=== PATIENT | female | born 1960 | race Caucasian/White ===

== ENCOUNTER → 2016-06-18 | Outpatient (CLI) | payer BC ==
[~2016-06-18] MED LIST: ACETAMINOPHEN PO; ASPIRIN ENTERI325 M1 PO; AUGMENTIN PO; CALCIUM 500 + D1 TAB; CELEBREX PO; CELECOXIB200 MG PO; COREG PO; COREG3.125 MG PO; COUMADIN; COUMADIN PO; COUMADIN10 MG PO; COUMADIN5 MG PO; COUMADIN7.5 MG; CRESTOR40 MG PO; FIORICET 50-321 EACH PO; FLEXERIL; HYDROCODON-ACE1 EAC5 PO; HYDROCODON-ACE1 EAC7 PO; HYDROCODON-ACET15 M1 PO; HYDROCODONE-APA1 T55 PO; HYDROCODONE/APA1 T16 PO; LIPITOR20 MG PO; LORTAB 10-5001 EACH PO; LOVENOX100 MG/ML INJ; LOVENOX40 MG/0.4 SUBQ; MACROBID100 M1 PO; MOBIC15 MG PO; MOBIC7.5 MG/5 M PO; NAPROXEN; NAPROXEN PO; NEURONTIN300 MG PO; OS-CAL 500+D CA1 TA1 PO; PANTOPRAZOLE SO40 MG PO; PEN-VEE K PO; PERCOCET 10/31 UDTA1 PO; PERCOCET5/325 PO; PREDNISONE PO; PROZAC; PROZAC PO; PROZAC40 MG PO; SIMVASTATIN40 MG PO; TOPAMAX PO; TOPAMAX200 MG PO; TRAMADOL HCL50 M1 PO; TRAMADOL HCL50 M2 PO; ULTRAM; ULTRAM PO; VICODIN 5/500 T1 TAB PO; VITAL-D RX TABL1 TAB PO; VITAMIN D PO; VITAMIN D1000 UNI1 PO
[2016-06-18 11:27] LABS: URINE APPEARANCE CLEAR; URINE BILIRUBIN NEG (NEG); URINE BLOOD NEG (NEG); URINE COLOR YELLOW; URINE GLUCOSE NEG (NEG); URINE KETONE NEG (NEG); URINE LEUKOCYTE ESTERASE 2+ (NEG); URINE NITRATE NEG (NEG); URINE PH 7.5 (5-8); URINE PROTEIN NEG (NEG); URINE SPECIFIC GRAVITY 1.021 (1.003-1.035)
[2016-06-18 11:29] LABS: URINE BACTERIA AUWI 1+ (NEGATIVE); URINE SQUAMOUS EPITHELIAL CELL OCC /[HPF]
[2016-06-18 11:42] LABS: URBCS1 AUWI 0-2 /[HPF] (0-2); URINE MUCUS PRESENT
== END | disposition home or self-care (01) ==
LOC: CLAB 10:24
PROVIDERS: Family Medicine
DX: N39.0 Urinary tract infection, site not specified (principal)
CPT/HCPCS: 81003

== ENCOUNTER → 2016-06-23 | Outpatient (CLI) | payer BC ==
--- NOTE | ~2016-06-23 | BD1 ---
[facility] A Service of [facility] RADIOLOGY TEXT RESULTS PATIENT: FATMATA JIMENEZ LOCATION: [facility] : 56 UNIT #: [id number] AGE: [address]: GUILLE ESCAMILLA APRN SEX: F ORDER DR: [id number] [facility] [address]. [place], [place] [address] [id number] O MR#: [id number] Acc #: [id number] NAME: FATMATA JIMENEZ. : 1960 SEX: F STUDY DATE/TIME: 06/23/2016 9:13 UNIT: [facility] ROOM: STUDY DESCRIPTION: BD Dexa Bone Dens 1+ Site Attending Physician: Guille Escamilla Aprn Ordering Physician: Guille Escamilla Aprn Primary Care Physician: Nitin Wilson M.D. MEDICAL IMAGING REPORT This report is preliminary unless electronic signature is present EXAM DEXA scan DATE: 06/23/2016 HISTORY 55-year-old postmenopausal female for osteoporosis screening. Greater than 30-year smoking history. Family history of osteoporosis in her mother. COMPARISON None FINDINGS L1 through L4 total bone mineral density is 0.76 g/cm2 with T-score -2.6 and Z-score -1.3, corresponding to the range of osteoporosis. The left femoral neck bone mineral density is 0.758 g/cm2 with T-score -0.8 and Z-score 0.4, corresponding to the range of normal. IMPRESSION 1. Bone mineral density within the lumbar spine corresponds to the range of osteoporosis. This stratifies the patient at increased risk for fracture. Appropriate medical therapy is advised. 2. Normal bone mineral density within the left femoral neck. Dictated by... Racquel Abdi M.D. THIS IS AN ELECTRONICALLY VERIFIED REPORT Racquel Abdi M.D. at 06/24/2016 7:[address] [facility]/leanna [facility] A Service of [facility] RADIOLOGY TEXT RESULTS PATIENT: FATMATA JIMENEZ LOCATION: [facility] : 56 UNIT #: [id number] AGE: [address]: GUILLE ESCAMILLA APRN SEX: F ORDER DR: TD: 06/23/2016 13:06 JOB #: [id number] MEDICAL IMAGING REPORT Page 1 of 1 COPY
== END | disposition home or self-care (01) ==
LOC: CWCC 06-16 11:30
DX: Z13.820 Encounter for screening for osteoporosis (principal); Z86.010 Personal history of colon polyps; Z51.81 Encounter for therapeutic drug level monitoring; Z79.899 Other long term (current) drug therapy; M81.0 Age-related osteoporosis without current pathological fracture
CPT/HCPCS: 77080

== ENCOUNTER 2016-09-02 13:43 | Emergency (ER) | payer BC ==
[~2016-09-02] VITALS: Ht 160 cm; Wt 102.0 kg
[~2016-09-02 13:43] MED LIST changes: -CELECOXIB200 MG PO; -TRAMADOL HCL50 M1 PO
[2016-09-03] MEDS ORDERED: TRAMADOL HCL50 M1 PO (15:57)
[2016-09-03] MEDS ORDERED: CELECOXIB200 MG PO (15:58)
== END 2016-09-02 15:00 | disposition home or self-care (01) ==
LOC: CFTX 13:43 → CED 13:43 → CFTX 14:30
DX: M54.42 Lumbago with sciatica, left side (principal); G89.29 Other chronic pain; I10 Essential (primary) hypertension; F17.210 Nicotine dependence, cigarettes, uncomplicated; Z88.8 Allergy status to other drugs, medicaments and biological substances; Z79.899 Other long term (current) drug therapy
CPT/HCPCS: 96372; 99283; J2270

== ENCOUNTER → 2016-09-09 | Day surgery (SDC) | payer BC ==
[~2016-09-09] MED LIST changes: +CELECOXIB200 MG PO; +TRAMADOL HCL50 M1 PO
--- NOTE | ~2016-09-09 | OR ---
Unit #: [id number] #: [id number] Patient: FATMATA JIMENEZ [id number] [address] [place], [place] [address] [id number] O MR#: [id number] NAME: FATMATA JIMENEZ. ROOM: Date of Procedure: 09/09/2016 Admission Date: 09/09/2016 Surgeon: Colt Craig M.D. : 1960 Attending Physician: Colt Craig M.D. Primary Care Physician: Nitin Wilson M.D. OPERATIVE REPORT PREOPERATIVE DIAGNOSES Herniated nucleus pulposus, back pain, and radiculopathy. POSTOPERATIVE DIAGNOSES Herniated nucleus pulposus, back pain, and radiculopathy. PROCEDURE PERFORMED Lumbar epidural steroid injection with intravenous sedation and fluoroscopic guidance for needle localization. INDICATIONS FOR PROCEDURE The patient is a 55-year-old female with return of worsening back, left hip, buttock, and lower extremity pain. She has known history at L5-S1 disk extrusion with free fragment, treated medically for chronic back issues, has done generally well. The patient was seen for radiculitis, she has done well with the use of medical management. Plan is to first a trial of an epidural steroid injection. Risks and benefits were all reviewed. DESCRIPTION OF PROCEDURE The patient was placed in a seated position. Standard monitors were applied. Sterile prep and drape of the lumbar area was performed. The skin at the L4 level was localized with 1% lidocaine. An 18-gauge Riidrtead needle was then advanced via loss of resistance technique and fluoroscopic guidance in toward the epidural space. After confirming proper positioning with fluoroscopy and radiographic contrast, 80 mg of Depo-Medrol and 4 mL of 0.125% bupivacaine were deposited. The patient tolerated the procedure otherwise well and was discharged to the recovery room in stable condition. Dictated by... Promise GiangP/musal TD: 09/09/2016 08:30 JOB #: [id number] Unit #: [id number] #: [id number] Patient: FATMATA JIMENEZ OPERATIVE REPORT Page 1 of 1 X Colt Craig MD X PROCEDURE OPERATIVE NOTE
== END | disposition home or self-care (01) ==
LOC: CCSC 06:59
DX: M51.17 Intervertebral disc disorders with radiculopathy, lumbosacral region (principal); I10 Essential (primary) hypertension; M19.90 Unspecified osteoarthritis, unspecified site; F41.9 Anxiety disorder, unspecified; F32.9 Major depressive disorder, single episode, unspecified; Z86.73 Personal history of transient ischemic attack (TIA), and cerebral infarction without residual deficits; Z86.718 Personal history of other venous thrombosis and embolism; Z88.8 Allergy status to other drugs, medicaments and biological substances; Z79.01 Long term (current) use of anticoagulants; Z79.891 Long term (current) use of opiate analgesic; Z79.899 Other long term (current) drug therapy; Z98.51 Tubal ligation status; Z90.710 Acquired absence of both cervix and uterus; Z96.652 Presence of left artificial knee joint; Z98.890 Other specified postprocedural states
CPT/HCPCS: J1040; J2250

== ENCOUNTER → 2016-09-23 | Day surgery (SDC) | payer BC ==
--- NOTE | ~2016-09-23 | OR ---
Unit #: [id number] #: [id number] Patient: FATMATA JIMENEZ [id number] [address] [address] [id number] O MR#: [id number] NAME: FATMATA JIMENEZ. ROOM: Date of Procedure: 09/23/2016 Admission Date: 09/23/2016 Surgeon: Colt Craig M.D. : 1960 Attending Physician: Colt Craig M.D. Primary Care Physician: Nitin Wilson M.D. OPERATIVE REPORT JOB NOTE: CC: [facility] PREOPERATIVE DIAGNOSES Radiculopathy, herniated nucleus pulposus. POSTOPERATIVE DIAGNOSES Radiculopathy, herniated nucleus pulposus. PROCEDURE PERFORMED Transforaminal epidural steroid injection with intravenous sedation and fluoroscopic guidance for needle localization. INDICATIONS FOR PROCEDURE The patient is a 55-year-old female, who has had worsening back and chronic left lower extremity pain. Translaminar epidural steroid injection helped to settle the back pain, still having significant left lower extremity pain. Plan based on pathology is a trial of transforaminal injection. DESCRIPTION OF PROCEDURE The patient was placed in a prone position. Standard monitors were applied. 2 mg of Versed were given for sedation and anxiolysis, which were adequate. Vital signs remained stable. Sterile prep and drape then of the lumbar area was performed. The skin then to the left of midline at the L5-S1 level was localized with 1% lidocaine. A long 22-Quincke point spinal needle was then advanced via left lateral approach. Using biplanar fluoroscopy, we directed the needle tip within the left L5-S1 neural foramina. The patient did not complain of any paresthesia. After confirming proper position with biplanar fluoroscopy and radiographic contrast, a dose of 80 mg of Depo-Medrol and 1 mL of 0.25% bupivacaine were deposited. The patient tolerated the procedure otherwise well and was discharged to the recovery room in stable condition. Dictated by... Colt Craig M.D. LHP/modl TD: 09/23/2016 10:58 JOB #: [id number] Unit #: [id number] #: [id number] Patient: FATMATA JIMENEZ OPERATIVE REPORT Page 1 of 1 X Colt Craig MD X PROCEDURE OPERATIVE NOTE
== END | disposition home or self-care (01) ==
LOC: CCSC 08:31
DX: G89.29 Other chronic pain (principal); M51.16 Intervertebral disc disorders with radiculopathy, lumbar region; M19.90 Unspecified osteoarthritis, unspecified site; I10 Essential (primary) hypertension; F41.9 Anxiety disorder, unspecified; F32.9 Major depressive disorder, single episode, unspecified; Z86.718 Personal history of other venous thrombosis and embolism; Z86.73 Personal history of transient ischemic attack (TIA), and cerebral infarction without residual deficits; Z88.8 Allergy status to other drugs, medicaments and biological substances; Z79.01 Long term (current) use of anticoagulants; Z79.891 Long term (current) use of opiate analgesic; Z79.899 Other long term (current) drug therapy
CPT/HCPCS: J1040; J2250